=== PATIENT | male | born 1995 | race Caucasian/White ===

== ENCOUNTER 2019-09-25 16:21 | Emergency (ER) | payer OTHER ==
[~2019-09-25] VITALS: Ht 182.9 cm; Wt 149.7 kg
[2019-09-25] MEDS ORDERED: TRAMADOL HCL50 MG PO (19:22)
[2019-09-25] MEDS ORDERED: DICLOFENAC SODI75 MG PO (19:22)
[2019-09-25] MEDS ORDERED: CRUTCH1 EACH MISC (19:23)
== END 2019-09-25 19:36 | disposition home or self-care (01) ==
LOC: ED 16:21
DX: S83.411A Sprain of medial collateral ligament of right knee, initial encounter (principal); X58.XXXA Exposure to other specified factors, initial encounter; Y99.0 Civilian activity done for income or pay
CPT/HCPCS: 73560; 99283-25

== ENCOUNTER 2024-11-17 16:42 | Emergency (ER) | payer OTHER ==
[~2024-11-17] VITALS: Ht 182.9 cm; Wt 160.5 kg
[~2024-11-17 16:42] MED LIST: CRUTCH1 EACH MISC; DICLOFENAC SODI75 MG PO; LISINOPRIL40 MG PO; LITHATE5 MG PO; NORVASC10 MG PO; PURE L-TYROSIN500 MG PO; SAM-E400 MG PO; TRAMADOL HCL50 MG PO; ZESTRIL40 MG PO
[2024-11-17 18:55] LABS: BASOPHILS 0.3 % (0.2-1.2); EOSINOPHILS 1.1 % (0.8-7.0); LYMPHOCYTES 23.8 % (21.8-53.1); MCH 31.6 PG (25.7-32.2); MCHC 35.9 g/dL (32.3-36.5); MCV 88.1 fL (79.0-92.2); MONOCYTES 7.5 % (5.3-12.2); NEUTROPHILS 67.0 % (34.0-67.9); RBC 4.94 M/uL (4.63-6.08)
[2024-11-17 19:06] LABS: GLOMERULAR FILTRATION RATE,EST 122.0 mL/min (>60); UREA NITROGEN 17.0 mg/dL (7-18)
[2024-11-17] MEDS ORDERED: PROCHLORPERAZINE EDISYLATE 10 MG/2 ML VIAL IV ONE (19:30)
[2024-11-17] MEDS ORDERED: KETOROLAC TROMETHAMINE 30 MG/ML VIAL IV ONE (19:30)
[2024-11-17] MEDS ORDERED: ZESTRIL20 MG PO (19:40)
[2024-11-17 20:13] VITALS: BP 157/111
== END 2024-11-17 20:14 | disposition home or self-care (01) ==
LOC: ED 16:42
PROVIDERS: Emergency Medicine
DX: R51.9 Headache, unspecified (principal); I10 Essential (primary) hypertension; E11.9 Type 2 diabetes mellitus without complications; Z91.018 Allergy to other foods
CPT/HCPCS: 36415; 80048; 85025; 96374; 96375; 99284-25; J0780; J1200; J1885